=== PATIENT | male | born 1965 | race Caucasian/White ===

== ENCOUNTER 2024-12-12 14:54 | Outpatient (CLI) | payer BC, SELFPAY ==
--- NOTE | ~2024-12-12 | CT_ITS ---
EXAMINATION:CT diagnostic chest w con DATE: 12/12/2024 15:30 INDICATION: Abnormal findings on diagnostic imaging. TECHNIQUE: Computed tomography (CT) of the chest was performed with 75 mL Omnipaque 350 intravenous contrast. Automated exposure control and iterative reconstruction technique were employed. The dose-length product (DLP) was 465.66 mGy-cm. COMPARISON: None. FINDINGS: There is mild atelectasis bilaterally. Calcified bilateral lung nodules are consistent with old granulomatous disease. There is a large sliding hiatal hernia. The heart size is normal. No pericardial effusion. There is mild thoracic spondylosis. IMPRESSION: 1. Large sliding hiatal hernia. Reviewed, dictated and finalized at location E.
[2024-12-12 15:19] LABS: Estimated Glomerular Filt Rate > 60
== END 2024-12-12 14:55 | disposition home or self-care (01) ==
LOC: MICIMG 14:55
PROVIDERS: PCP Internal Medicine; Visit Provider Internal Medicine
DX: R93.89 Abnormal findings on diagnostic imaging of other specified body structures (principal); K44.9 Diaphragmatic hernia without obstruction or gangrene
CPT/HCPCS: 71260; Q9967